=== PATIENT | male | born 1935 | race Caucasian/White ===

== ENCOUNTER 2017-01-02 17:30 | Observation (INO) | payer MEDICARE, BC, OTHER ==
[~2017-01-02 17:30] MED LIST: ASPIR 8181 MG PO; BACTRIM DS TAB1 EACH PO; CALCIUM600 MG PO; CIPRO500 MG PO; CLARITIN-D 241 EACH PO; COREG3.125 MG PO; FLAGYL500 MG PO; HYDROCODON-ACE1 EAC2 PO; LIPITOR10 MG PO; PEPCID20 MG PO; PRILOSEC20 M1 PO; SENNA8.6 MG PO; XARELTO15 MG PO; ZOFRAN4 MG PO
[2017-01-05] MEDS ORDERED: LIPITOR10 MG PO (08:16)
[2017-01-05] MEDS ORDERED: PEPCID20 MG PO (08:16)
[2017-01-05] MEDS ORDERED: ZOFRAN4 MG PO (08:16)
[2017-01-05] MEDS ORDERED: COREG3.125 MG PO (08:17)
[2017-01-05] MEDS ORDERED: LISINOPRIL2.5 MG PO (08:17)
[2017-01-05] MEDS ORDERED: FLOMAX0.4 MG PO (08:17)
[2017-01-05] MEDS ORDERED: CALCIUM600 MG PO (08:17)
[2017-01-05] MEDS ORDERED: PREDNISONE5 MG PO (08:18)
[2017-01-05] MEDS ORDERED: ZYTIGA250 MG PO (08:18)
[2017-01-05] MEDS ORDERED: VITAMIN B-121000 MC2 SL (08:19)
[2017-01-05] MEDS ORDERED: ASPIRIN EC81 MG PO (08:19)
[2017-01-05] MEDS ORDERED: LOTRISONE CREAM45 GM TOP (08:20)
[2017-01-05] MEDS ORDERED: TERBINAFINE250 MG PO (08:21)
== END 2017-01-04 14:45 | disposition home or self-care (01) ==
LOC: ER 17:30 → MED 20:59
PROVIDERS: ADMIT Internal Medicine
DX: K52.9 Noninfective gastroenteritis and colitis, unspecified (principal); E86.0 Dehydration; I10 Essential (primary) hypertension; E11.9 Type 2 diabetes mellitus without complications; M81.0 Age-related osteoporosis without current pathological fracture; I48.91 Unspecified atrial fibrillation; E78.5 Hyperlipidemia, unspecified; Z86.718 Personal history of other venous thrombosis and embolism; Z79.899 Other long term (current) drug therapy; Z85.46 Personal history of malignant neoplasm of prostate; Z87.442 Personal history of urinary calculi; Z85.038 Personal history of other malignant neoplasm of large intestine; Z90.49 Acquired absence of other specified parts of digestive tract; Z91.041 Radiographic dye allergy status; Z88.1 Allergy status to other antibiotic agents; Z88.8 Allergy status to other drugs, medicaments and biological substances
CPT/HCPCS: 36415; 87502; 96361; 96365; 96366; 96367; 96372; G0378; J1650; J3420

== ENCOUNTER 2017-01-02 17:30 | Emergency (ER) | payer MEDICARE, BC ==
[2017-01-05] MEDS ORDERED: ZOFRAN4 MG PO (08:16)
[2017-01-05] MEDS ORDERED: PEPCID20 MG PO (08:16)
[2017-01-05] MEDS ORDERED: LIPITOR10 MG PO (08:16)
[2017-01-05] MEDS ORDERED: FLOMAX0.4 MG PO (08:17)
[2017-01-05] MEDS ORDERED: CALCIUM600 MG PO (08:17)
[2017-01-05] MEDS ORDERED: LISINOPRIL2.5 MG PO (08:17)
[2017-01-05] MEDS ORDERED: COREG3.125 MG PO (08:17)
[2017-01-05] MEDS ORDERED: PREDNISONE5 MG PO (08:18)
[2017-01-05] MEDS ORDERED: ZYTIGA250 MG PO (08:18)
[2017-01-05] MEDS ORDERED: VITAMIN B-121000 MC2 SL (08:19)
[2017-01-05] MEDS ORDERED: ASPIRIN EC81 MG PO (08:19)
[2017-01-05] MEDS ORDERED: LOTRISONE CREAM45 GM TOP (08:20)
[2017-01-05] MEDS ORDERED: TERBINAFINE250 MG PO (08:21)
== END 2017-01-02 20:58 | disposition critical access hospital (66) ==
LOC: ER 17:30
DX: N17.9 Acute kidney failure, unspecified (principal); E86.0 Dehydration; I10 Essential (primary) hypertension; E66.9 Obesity, unspecified; Z79.82 Long term (current) use of aspirin; Z79.899 Other long term (current) drug therapy; Z91.041 Radiographic dye allergy status
CPT/HCPCS: 96360; 96361